=== PATIENT | male | born 1975 | race Caucasian/White ===

== ENCOUNTER → 2024-08-05 15:24 | Outpatient (CLI) | payer OTHER, SELFPAY ==
--- NOTE | 2024-08-05 15:32 | DI.RAD.S_ITS ---
PROCEDURE: XR HAND LT 2V INDICATIONS: ARTHRITIS TECHNIQUE: 2 views of the hand(s) acquired. COMPARISON: None. FINDINGS: Bones: No fractures or dislocations. Carpal bones are normally aligned. No suspicious bony lesions. Soft tissues: No suspicious soft tissue calcifications. IMPRESSION: No acute bony abnormality. No significant degenerative change. Dictated by: Aj Patel M.D. on 08/06/2024 at 14:30 Approved by: Aj Patel M.D. on 08/06/2024 at 14:30
== END ==
LOC: RAD 15:31
PROVIDERS: Referring Provider Chiropractor; Visit Provider Chiropractor
DX: M13.842 Other specified arthritis, left hand (principal)
CPT/HCPCS: 73120

== ENCOUNTER → 2024-08-27 11:43 | Outpatient (CLI) | payer OTHER, SELFPAY ==
--- NOTE | 2024-08-27 11:50 | DI.RAD.S_ITS ---
PROCEDURE: XR SHOULDER RT MIN 2V INDICATIONS: SHOULDER PAIN TECHNIQUE: Three views of the shoulder were acquired. COMPARISON: None. FINDINGS: Bones: No acute fractures or dislocations. No suspicious bony lesions. Visualized ribs appear intact. Mild acromioclavicular joint osteoarthrosis. Soft tissues: No suspicious soft tissue calcifications. IMPRESSION: Mildly acromioclavicular joint osteoarthrosis. Approved by: Mor Concepcion M.D. on 08/28/2024 at 15:52
[2024-08-27 16:10] LABS: Vitamin D 25 Hydroxy (D3) 26.8 ng/mL (30.0-100.0)
== END ==
LOC: RAD 11:49
PROVIDERS: Referring Provider Chiropractor; Visit Provider Chiropractor
DX: M13.811 Other specified arthritis, right shoulder; E55.9 Vitamin D deficiency, unspecified
CPT/HCPCS: 36415; 73030; 82306

== ENCOUNTER 2025-01-02 17:45 | Emergency (ER) | payer OTHER, SELFPAY ==
[2025-01-02 17:48] VITALS: BP 129/82; PULSE 75; RESP 16; TEMP 36.4; O2SAT 98; BMI 28.0
--- NOTE | 2025-01-02 17:51 | DI.RAD.S_ITS ---
PROCEDURE: XR FINGER RT MIN 2V INDICATIONS: r/o broken thumb TECHNIQUE: AP hand, 2 views of the 1st finger(s) acquired. COMPARISON: None. FINDINGS AND IMPRESSION: No acute displaced fracture or dislocation is seen. No suspicious soft tissue calcifications. If there is high concern for occult injury, consider repeat radiography in about 7 days or cross-sectional imaging. Dictated by: Esteban Garcia M.D. on 01/02/2025 at 17:21 Approved by: Esteban Garcia M.D. on 01/02/2025 at 17:21
--- NOTE | 2025-01-02 19:09 | ED_ITS ---
HPI - Extremity Injury (Upper) General Chief Complaint: Extremity Injury, Upper Stated Complaint: Sent by ; Poss Broken R Thumb, Need XR Time Seen by Provider: 01/02/25 18:04 Source: patient Mode of arrival: Ambulatory History of Present Illness HPI narrative: 41-year-old gentleman presents with right thumb injury when he was moving heavy object and thumb got caught in the door frame. He is able to move it but feels sore and painful to move it in all directions. He did not take anything for the pain prior to arrival here. Other than what is stated 14 point review of system is negative. Related Data Allergies Allergy/AdvReac Type Severity Reaction Status Date / Time No Known Drug Allergies Allergy Verified 01/02/25 17:48 Review of Systems Review of Systems ROS Unobtainable: All systems reviewed & are unremarkable except as noted in HPI and below Patient History Smoking Status: Never smoker Exam Narrative Exam Narrative: GENERAL: [49] year old patient appears stated age. Well-developed patient, in mild distress. HEAD: Atraumatic. Normocephalic. EYES: Pupils equal round and reactive. Extraocular motions intact. No scleral icterus. No injection or drainage. EXTREMITIES: No edema or joint tenderness. Right thumb flexion extension opposition adduction adduction all intact mild slowing PIP joint on the medial side, motor sensory intact +2 radial pulse cap refill less than 2nd BACK: Nontender without deformity or crepitance. No flank tenderness. NEURO: AOx3. SKIN: No rash or erythema of visible areas Initial Vital Signs Initial Vital Signs: Vital Signs Temperature 97.6 F 01/02/25 17:48 Pulse Rate 75 01/02/25 17:48 Respiratory Rate 16 01/02/25 17:48 Blood Pressure 129/82 01/02/25 17:48 Pulse Oximetry 98 01/02/25 17:48 Oxygen Delivery Method Room Air 01/02/25 17:48 Course Orders Ordered: ED Orders 01/02/25 17:51 XR finger RT min 2V Stat Vital Signs Vital signs: Vital Signs - 8 hr 01/02/25 17:48 Temperature 97.6 F Pulse Rate 75 Respiratory Rate 16 Blood Pressure 129/82 Pulse Oximetry 98 Oxygen Delivery Method Room Air MDM - Extremity Injury (Upper) MDM Narrative Medical decision making narrative: Vital signs, nurse triage note, medication list, previous ER visit, and all imaging studies reviewed. X-ray showed no acute process place patient in a thumb spica and to return with new or worsening symptoms and to follow up PCP in 1-2 weeks if no improvement symptoms. Differential diagnosis includes fracture dislocation contusion sprain ligament tendon injury. Discharge Plan Departure Patient Disposition: Home Clinical Impression: Pain of right thumb Instructions: DI for Ulnar Collateral Ligament Sprain of Thumb Activity Restrictions/Additional Instructions: Return with new or worsening symptoms. Take Tylenol and or ibuprofen as needed for pain control. If no improvement in 1 week will need follow up for return x- ray or follow up with PCP for reexamination. Stand Alone Forms: Patient Portal/API
--- NOTE | 2025-01-02 19:20 | PC.NURSE ---
pt reports right thumb got caught in car door. Pt reports pain when moving right thumb.
[2025-01-02 19:23] VITALS: RESP 19
== END 2025-01-02 19:24 | disposition home or self-care (01) ==
PROVIDERS: Emergency Provider Family Medicine
DX: M79.644 Pain in right finger(s) (principal)
CPT/HCPCS: 73140; 99282; 99283

== ENCOUNTER 2025-03-25 12:57 | Day surgery (SDC) | payer OTHER, SELFPAY ==
--- NOTE | 2025-03-25 | PATH_ITS ---
[facility] Accession Number: [id number] No. of containers..02 Tissue . 01 Material submitted: . PART A: colon - ASCENDING POLYP X3 PART B: colon - SIGMOID POLYP . 01 Diagnosis: A. ASCENDING COLON POLYPS: Sessile serrated adenomas (three polyps removed). . B. SIGMOID COLON POLYP: Tubular adenoma. MRV 04/02/2025 1551 Local . 01 Electronically signed: . Vinayak Whalen MD, PhD, Pathologist NPI- [id number] . 01 Gross description: . Received are two formalin-filled containers both labeled with the patient's name. . A. In a container labeled ascending polyps x 3, are three fragments of elias, soft tissue which range in size from 0.7 x 0.5 x 0.5 cm to 1.0 x 0.4 x 0.4 cm. All fragments are totally submitted in cassette A1. B. In a container labeled sigmoid polyp, is one fragment of elias, soft tissue which measures 0.6 x 0.4 x 0.3 cm. The specimen is totally submitted in cassette B1. ([id number]) /[facility] 03/31/2025 0620 Local . 01 Pathologist provided ICD-10: D12.2, D12.5 . 01 CPT . 904170, 908131 Specimen Comment: A courtesy copy of this report has been sent to [phone] Performed at: [address] [id number] MD Jonathan Vazquez MD Phone: [phone]
[2025-03-25 13:17] VITALS: BP 154/93; PULSE 63; RESP 18; TEMP 36.3; O2SAT 100
[2025-03-25] MEDS: LACTATED RINGERS 1,000 ML 42 ML IV (13:35)
--- NOTE | 2025-03-25 14:05 | PM.HP.IH.1 ---
History of Present Illness History of Present Illness Date Patient Seen: 03/25/25 Time Patient Seen: 14:06 Chief complaint: Colonoscopy Narrative: Jose is a 49-year-old man with a history of polyps during his first colonoscopy 4 years ago. No family history of colon cancer. PFSH Social History Smoking Status: Never smoker Meds Home Medications and Allergies Home Medications ?Medication ?Instructions ?Recorded ?Confirmed ?Type fexofenadine 180 mg tablet 180 mg PO DAILY 03/25/25 03/25/25 History lisinopril 10 mg tablet 10 mg PO DAILY 03/25/25 03/25/25 History Allergies Allergy/AdvReac Type Severity Reaction Status Date / Time No Known Drug Allergies Allergy Verified 03/25/25 13:48 Exam Vital Signs (past 8 hours): - 03/25/25 13:17 Temperature 97.3 F L Pulse Rate 63 Respiratory Rate 18 Blood Pressure 154/93 H Pulse Oximetry 100 Oxygen Delivery Method Room Air Oxygen Delivery Method Room Air Const General: healthy appearing Assessment & Plan Assessment and plan (1) History of colon polyps: Status: Acute Plan Colonoscopy Time-Based Coding :: [TOTAL MINUTES] spent with patient and on the chart (including review of chart, obtaining history, exam, reviewing outside data, placing orders, documenting exam and treatment plan, and counseling patient) on [DATE]. [employer] Document charge(s): No
[2025-03-25 14:34] VITALS: BP 120/76; PULSE 75; RESP 16; TEMP 36.2; O2SAT 97
--- NOTE | 2025-03-25 14:36 | PM.OP.COLON ---
Operative Date/Time/Diagnoses Date of procedure: 03/25/25 Time of procedure: 14:36 Pre-op diagnosis: History of polyps Post-op diagnosis: same Procedure & Clinicians Study performed: Colonoscopy Same procedure(s) as scheduled: Yes Surgeon: Kristian Scott Anesthesia Type: MAC +/- Procedure Notes Procedure in detail: Surgeon: Kristian Scott MD Anesthesia: Ida Berg CRNA Procedure: The patient was brought to the endoscopy suite, placed in left lateral decubitus position. The patient was connected to monitoring devices. A time-out was performed. Sedation was administered. Once the patient was adequately sedated, a digital rectal exam was performed and was normal. The scope was then inserted and advanced to the cecum where the appendiceal orifice was identified and photographed. The scope was then slowly withdrawn over greater than 6 minutes. The mucosa was thoroughly inspected. There were 3 sessile polyps in the ascending colon removed with a cold snare and sent together. The largest was about 1 cm. There was a 7 mm polyp in the sigmoid colon removed with a cold snare. The scope was retroflexed in the rectum. No other abnormalities were found. The scope was straightened and removed. The patient was awakened and brought to recovery. Scope withdrawal time: 12 minutes Sedation time: 16 minutes EBL: 5 mL Findings: 3 polyps in the ascending colon and 1 polyp in the sigmoid colon Post-procedure Disposition: PACU
[2025-03-25 14:39] VITALS: BP 126/81; PULSE 68; RESP 16; TEMP 36.2; O2SAT 98
[2025-03-25 14:46] VITALS: BP 125/84; PULSE 75; RESP 16; TEMP 36.2; O2SAT 98
== END 2025-03-25 15:10 | disposition home or self-care (01) ==
PROVIDERS: Referring Provider Surgery; Visit Provider Surgery
PROC: 0DJD8ZZ Inspection of Lower Intestinal Tract, Via Natural or Artificial Opening Endoscopic (ICD-10-PCS; CPT 45378; principal; 2025-03-25 14:00)
DX: Z12.11 Encounter for screening for malignant neoplasm of colon (principal); Z86.0100 Personal history of colon polyps, unspecified
CPT/HCPCS: 45385; J2704